=== PATIENT | male | born 1955 | race Caucasian/White ===

== ENCOUNTER 2016-05-09 08:34 | Inpatient (IN) | payer OTHER ==
[~2016-05-09 08:34] MED LIST: ACYCLOVIR400 M1 PO; ADVAIR 5001 DISK W/D IH; ALBUTEROL SULF8.5 GM IH; ALBUTEROL17 GM INH; ANORO ELLIPTA1 EAC1 IH; AUGMENTIN XR 11 EACH PO; BACITRACIN1 G1 EXT; BACITRACIN28.4 G2 TP; CEFDINIR300 M1 PO; CLARITIN10 M2 PO; CLARITIN10 M8 PO; COMBIVENT RESPIM4 G1 INH; DALIRESP500 MC1 PO; DELTASONE10 MG PO; DELTASONE20 MG PO; DIFLUCAN100 M1 PO; DULCOLAX10 MG PR; DULERA 200 MCG/13 G1 INH; FLONASE ALLERG9.9 ML; FUROSEMIDE20 M1 PO; GAVILAX17 G2 PO; GUAIFENESIN ER600 MG PO; IBUPROFEN200 M2 PO; IPRAT-ALBUT 0.5-3 ML IH; IPRATROPIUM BRO15 M1; LASIX20 M1 PO; LASIX40 M1 PO; LEVAQUIN500 M1 PO; LEVAQUIN500 MG PO; LEVAQUIN750 M1 PO; MAGIC MOUTHWASH SSP; MELOXICAM15 M1 PO; MIRALAX17 G2 PO; MOBIC15 M2 PO; MOTRIN IB200 M1 PO; MUCINEX D ER 11 EACH PO; MUCINEX1200 MG PO; NASONEX17 G1; NORCO 5/325 TAB1 TAB PO; NYSTOP60 GM TP; OXYCODONE HCL5 M1 PO; PERCOCET 5-3251 EACH PO; POTASSIUM CHLO20 ME3 PO; PRADAXA150 M1 PO; PREDNISONE10 M1 PO; PROAIR HFA8.5 GM INH; PROAIR RESPICL90 MCG INH; PROTONIX40 M2 PO; REQUIP1 MG PO; REQUIP2 M1 PO; REQUIP4 M1 PO; ROXICODONE5 M2 PO; SENNA-DOCUSATE1 EAC1 PO; SINGULAIR10 M1 PO; SINGULAIR10 MG PO; SOTALOL80 M1 PO; SYMBICORT 160-4.6 GM IH; TORSEMIDE100 M1 PO; ULTRAM50 MG PO; VENTOLIN HFA18 G2 INH; WELCHOL625 MG PO; XANAX0.25 M1 PO; ZITHROMAX250 M1 PO; ZYRTEC1010 PO
[2016-05-09 09:07] LABS: BASO % 0.3 % (0-2); HCT-HEMATOCRIT 46.1 % (36.0-53.5); HGB-HEMOGLOBIN 14.4 gm/dl (13.5-17.0); IMMATURE GRANULOCYTES ABSOLUTE 0.16 tho/cmm (0-0.03); IMMATURE GRANULOCYTES PERCENT 1.3 % (0-0.3); LYMPH % 3.4 % (20-45); LYMPH ABSOLUTE COUNT 0.4 tho/cmm (0.8-4.5); MCH (MEAN CORPUSCULAR HGB) 29.4 pg (28.0-32.0); MCHC MEAN CORPUSCULAR HGB CONC 31.2 % (32.0-36.0); MCV (MEAN CELL VOLUME) 94.1 fl (82.0-96.0); MEAN PLATELET VOLUME 9.9 cmc (9.4-12.4); MONO % 9.4 % (0-12); MONOCYTE ABSOLUTE COUNT 1.1 tho/cmm (0.0-1.2); NEUTROPHIL ABSOLUTE COUNT 10.3 tho/cmm (1.6-8.0); NEUTROPHIL-AUTOMATED 10.3 tho/cmm (1.6-8.0); NEUTROPHILS % 85.6 % (40-80); PLATELET COUNT 205 tho/cmm (150-450); RED CELL DISTRIBUTION WIDTH 14.3 % (12.4-16.4)
[2016-05-09] MEDS ORDERED: XARELTO10 M1 PO (09:19)
[2016-05-09 09:20] LABS: ALB/GLOB RATIO 0.6 (0.8-2.0); ALBUMIN 2.7 g/dl (3.5-5.0); ALKALINE PHOSPHATASE 54 U/L (33-138); ALT/SGPT 39 U/L (12-78); BILIRUBIN,TOTAL 0.4 mg/dl (0.0-1.5); BLOOD UREA NITROGEN 14 mg/dl (6-24); CALCIUM 9.3 mg/dl (8.5-10.5); CARBON DIOXIDE-VENOUS 34 mmol/L (22-32); CHLORIDE 98 mmol/l (96-110); CREATININE 0.58 mg/dl (0.60-1.30); GLUCOSE 109 mg/dL (70-110); SODIUM 137 mmol/L (135-145); eGFR VALUE FOR BLACK >90 mL/Min
[2016-05-09] MEDS ORDERED: MINOCYCLINE HC100 M1 PO (09:20)
[2016-05-09] MEDS ORDERED: BETAPACE80 M2 PO ×2 (09:20)
[2016-05-09 09:21] LABS: ANION GAP 10 mmol/L (0-20); AST/SGOT 48 U/L (10-40); POTASSIUM 4.6 mmol/L (3.7-5.1)
[2016-05-09] MEDS ORDERED: DELTASONE20 MG PO (09:22)
[2016-05-09] MEDS ORDERED: NEURONTIN100 M1 PO (09:24)
[2016-05-09] MEDS ORDERED: COLACE100 M1 PO (09:41)
[2016-05-09] MEDS ORDERED: TORSEMIDE100 M1 PO (09:42)
[2016-05-09] MEDS ORDERED: ANORO ELLIPTA1 EAC1 INH (09:45)
[2016-05-09 13:53] LABS: URINE BILIRUBIN NEGATIVE (NEG); URINE BLOOD NEGATIVE (NEG); URINE GLUCOSE (UA) NEGATIVE (NEG); URINE KETONE NEGATIVE (NEG); URINE LEUKOCYTE ESTERASE NEGATIVE (NEG); URINE NITRITE NEGATIVE (NEG); URINE PH 6.5 (5.0-8.0); URINE PROTEIN NEGATIVE (NEG)
[2016-05-09 13:58] LABS: URINE APPEARANCE CLEAR; URINE COLOR YELLOW
[2016-05-09 14:04] LABS: URINE EPITHELIAL CELLS 0-2 /[HPF] (0-10); URINE RBC RARE /[HPF] (0-5); URINE WBC 0 /[HPF] (0-5)
[2016-05-09 17:15] LABS: ABG CO2 ARTERIAL 38 mmol/L (21-27); ARTERIAL BLD GAS O2 SATURATION 91 % (95-98); ARTERIAL BLOOD GAS PCO2 56 mmHg (32-45); ARTERIAL PO2 59 mmHg (70-100); BICARBONATE 36 mmol/L (21-28); BLOOD GAS BASE EXCESS 9 mM/L (-/+3); PH 7.42 Units (7.35-7.45)
[2016-05-10 05:59] LABS: CHLORIDE 94 mmol/l (96-110); POTASSIUM 4.3 mmol/L (3.7-5.1); SODIUM 136 mmol/L (135-145)
[2016-05-10 06:00] LABS: ARTERIAL BLD GAS O2 SATURATION 94 % (95-98); BICARBONATE 40 mmol/L (21-28); BLOOD GAS BASE EXCESS 10 mM/L (-/+3); PH 7.34 Units (7.35-7.45)
[2016-05-10 06:04] LABS: ANION GAP 9 mmol/L (0-20); BLOOD UREA NITROGEN 19 mg/dl (6-24); CALCIUM 9.3 mg/dl (8.5-10.5); CARBON DIOXIDE-VENOUS 37 mmol/L (22-32); CREATININE 0.61 mg/dl (0.60-1.30); GLUCOSE 129 mg/dL (70-110); eGFR VALUE FOR BLACK >90 mL/Min
[2016-05-10 06:08] LABS: ARTERIAL PO2 76 mmHg (70-100)
[2016-05-10 06:13] LABS: ABG CO2 ARTERIAL 42 mmol/L (21-27); ARTERIAL BLOOD GAS PCO2 76 mmHg (32-45)
[2016-05-10 10:27] LABS: BASO % 0.2 % (0-2); HCT-HEMATOCRIT 48.4 % (36.0-53.5); HGB-HEMOGLOBIN 15.1 gm/dl (13.5-17.0); IMMATURE GRANULOCYTES ABSOLUTE 0.08 tho/cmm (0-0.03); IMMATURE GRANULOCYTES PERCENT 0.6 % (0-0.3); LYMPH % 3.2 % (20-45); LYMPH ABSOLUTE COUNT 0.4 tho/cmm (0.8-4.5); MCH (MEAN CORPUSCULAR HGB) 29.7 pg (28.0-32.0); MCHC MEAN CORPUSCULAR HGB CONC 31.2 % (32.0-36.0); MCV (MEAN CELL VOLUME) 95.1 fl (82.0-96.0); MONO % 4.9 % (0-12); MONOCYTE ABSOLUTE COUNT 0.6 tho/cmm (0.0-1.2); NEUTROPHIL ABSOLUTE COUNT 11.3 tho/cmm (1.6-8.0); NEUTROPHIL-AUTOMATED 11.3 tho/cmm (1.6-8.0); NEUTROPHILS % 91.1 % (40-80); PLATELET COUNT 217 tho/cmm (150-450); RED BLOOD COUNT 5.09 mil/cmm (4.40-5.70); RED CELL DISTRIBUTION WIDTH 14.3 % (12.4-16.4); WHITE BLOOD COUNT 12.4 tho/cmm (4.0-10.0)
[2016-05-11 05:44] LABS: ARTERIAL BLD GAS O2 SATURATION 96 % (95-98); BICARBONATE 40 mmol/L (21-28); BLOOD GAS BASE EXCESS 10 mM/L (-/+3); PH 7.36 Units (7.35-7.45)
[2016-05-11 05:46] LABS: ABG CO2 ARTERIAL 34 mmol/L (21-27); ARTERIAL PO2 91 mmHg (70-100)
[2016-05-11 05:49] LABS: ARTERIAL BLOOD GAS PCO2 72 mmHg (32-45)
[2016-05-11 06:57] LABS: BASO % 0.2 % (0-2); HCT-HEMATOCRIT 48.4 % (36.0-53.5); HGB-HEMOGLOBIN 14.7 gm/dl (13.5-17.0); IMMATURE GRANULOCYTES ABSOLUTE 0.15 tho/cmm (0-0.03); IMMATURE GRANULOCYTES PERCENT 1.2 % (0-0.3); LYMPH % 3.9 % (20-45); LYMPH ABSOLUTE COUNT 0.5 tho/cmm (0.8-4.5); MCH (MEAN CORPUSCULAR HGB) 29.3 pg (28.0-32.0); MCHC MEAN CORPUSCULAR HGB CONC 30.4 % (32.0-36.0); MCV (MEAN CELL VOLUME) 96.4 fl (82.0-96.0); MEAN PLATELET VOLUME 9.9 cmc (9.4-12.4); MONO % 4.9 % (0-12); MONOCYTE ABSOLUTE COUNT 0.6 tho/cmm (0.0-1.2); NEUTROPHIL ABSOLUTE COUNT 11.3 tho/cmm (1.6-8.0); NEUTROPHIL-AUTOMATED 11.3 tho/cmm (1.6-8.0); NEUTROPHILS % 89.8 % (40-80); PLATELET COUNT 210 tho/cmm (150-450); RED BLOOD COUNT 5.02 mil/cmm (4.40-5.70); RED CELL DISTRIBUTION WIDTH 14.1 % (12.4-16.4); WHITE BLOOD COUNT 12.5 tho/cmm (4.0-10.0)
[2016-05-11 06:57] LABS: PROTHROMBIN TIME 11.9 SECONDS (9.0-13.6)
[2016-05-11 07:06] LABS: ANION GAP 6 mmol/L (0-20); BLOOD UREA NITROGEN 21 mg/dl (6-24); CALCIUM 9.5 mg/dl (8.5-10.5); CHLORIDE 98 mmol/l (96-110); CREATININE 0.69 mg/dl (0.60-1.30); GLUCOSE 143 mg/dL (70-110); POTASSIUM 4.5 mmol/L (3.7-5.1); SODIUM 140 mmol/L (135-145); eGFR VALUE FOR BLACK >90 mL/Min
[2016-05-11 07:20] LABS: CARBON DIOXIDE-VENOUS 41 mmol/L (22-32)
[2016-05-12 04:40] LABS: INR 1.1 INR (0.9-1.1); PROTHROMBIN TIME 12.5 SECONDS (9.0-13.6)
[2016-05-12 04:52] LABS: BLOOD UREA NITROGEN 24 mg/dl (6-24); CALCIUM 9.8 mg/dl (8.5-10.5); CHLORIDE 92 mmol/l (96-110); CREATININE 0.74 mg/dl (0.60-1.30); GLUCOSE 142 mg/dL (70-110); MAGNESIUM 2.7 mg/dl (1.3-2.6); POTASSIUM 4.3 mmol/L (3.7-5.1); SODIUM 138 mmol/L (135-145); eGFR VALUE FOR BLACK >90 mL/Min
[2016-05-12 04:57] LABS: ANION GAP -11 mmol/L (0-20)
[2016-05-12 04:58] LABS: CARBON DIOXIDE-VENOUS 61 mmol/L (22-32)
[2016-05-12 17:03] LABS: ARTERIAL BLD GAS O2 SATURATION 98 % (95-98); BLOOD GAS BASE EXCESS 18 mM/L (-/+3); PH 7.41 Units (7.35-7.45)
[2016-05-12 17:06] LABS: ARTERIAL PO2 117 mmHg (70-100); BICARBONATE 47 mmol/L (21-28)
[2016-05-12 17:10] LABS: ARTERIAL BLOOD GAS PCO2 76 mmHg (32-45)
[2016-05-12 17:11] LABS: ABG CO2 ARTERIAL 49 mmol/L (21-27)
[2016-05-12 17:29] LABS: BLOOD UREA NITROGEN 29 mg/dl (6-24); CALCIUM 9.4 mg/dl (8.5-10.5); CHLORIDE 92 mmol/l (96-110)
[2016-05-12 17:42] LABS: POTASSIUM 4.4 mmol/L (3.5-5.3); eGFR VALUE FOR BLACK >90 mL/Min
[2016-05-12 17:43] LABS: SODIUM 140 mmol/L (135-146)
[2016-05-12 17:44] LABS: CREATININE 0.68 mg/dl (0.67-1.17); GLUCOSE 111 mg/dl (65-120)
[2016-05-12 17:45] LABS: CARBON DIOXIDE-VENOUS 48 mmol/L (21-33)
[2016-05-12 17:46] LABS: ANION GAP 4 mmol/L (0-20)
[2016-05-13 04:35] LABS: INR 1.3 INR (0.9-1.1); PROTHROMBIN TIME 15.6 SECONDS (9.0-13.6)
[2016-05-13 04:56] LABS: BLOOD UREA NITROGEN 25 mg/dl (6-24); CALCIUM 9.5 mg/dl (8.5-10.5); CHLORIDE 91 mmol/l (96-110); CREATININE 0.63 mg/dl (0.60-1.30); GLUCOSE 157 mg/dL (70-110); MAGNESIUM 2.7 mg/dl (1.3-2.6); SODIUM 139 mmol/L (135-145); eGFR VALUE FOR BLACK >90 mL/Min
[2016-05-13 07:28] LABS: ANION GAP 1 mmol/L (0-20); CARBON DIOXIDE-VENOUS 51 mmol/L (22-32)
[2016-05-14 05:38] LABS: PROTHROMBIN TIME 11.9 SECONDS (9.0-13.6)
[2016-05-14 05:39] LABS: BLOOD UREA NITROGEN 22 mg/dl (6-24); CALCIUM 9.5 mg/dl (8.5-10.5); CHLORIDE 89 mmol/l (96-110); CREATININE 0.66 mg/dl (0.60-1.30); GLUCOSE 110 mg/dL (70-110); MAGNESIUM 2.6 mg/dl (1.3-2.6); POTASSIUM 4.5 mmol/L (3.7-5.1); SODIUM 138 mmol/L (135-145); eGFR VALUE FOR BLACK >90 mL/Min
[2016-05-14 05:55] LABS: ARTERIAL BLD GAS O2 SATURATION 98 % (95-98); ARTERIAL PO2 108 mmHg (70-100); BICARBONATE 49 mmol/L (21-28); BLOOD GAS BASE EXCESS 18 mM/L (-/+3); PH 7.38 Units (7.35-7.45)
[2016-05-14 05:58] LABS: ARTERIAL BLOOD GAS PCO2 84 mmHg (32-45)
[2016-05-14 05:59] LABS: ABG CO2 ARTERIAL 52 mmol/L (21-27)
[2016-05-14 06:36] LABS: ANION GAP 9 mmol/L (0-20)
[2016-05-14 06:47] LABS: CARBON DIOXIDE-VENOUS 45 mmol/L (22-32)
[2016-05-14 15:29] LABS: BASO % 0.1 % (0-2); HCT-HEMATOCRIT 49.5 % (36.0-53.5); HGB-HEMOGLOBIN 15.3 gm/dl (13.5-17.0); IMMATURE GRANULOCYTES ABSOLUTE 0.25 tho/cmm (0-0.03); IMMATURE GRANULOCYTES PERCENT 1.5 % (0-0.3); LYMPH % 5.4 % (20-45); LYMPH ABSOLUTE COUNT 0.9 tho/cmm (0.8-4.5); MCH (MEAN CORPUSCULAR HGB) 29.8 pg (28.0-32.0); MCHC MEAN CORPUSCULAR HGB CONC 30.9 % (32.0-36.0); MCV (MEAN CELL VOLUME) 96.5 fl (82.0-96.0); MEAN PLATELET VOLUME 9.5 cmc (9.4-12.4); MONO % 6.9 % (0-12); MONOCYTE ABSOLUTE COUNT 1.2 tho/cmm (0.0-1.2); NEUTROPHIL ABSOLUTE COUNT 14.5 tho/cmm (1.6-8.0); NEUTROPHIL-AUTOMATED 14.5 tho/cmm (1.6-8.0); NEUTROPHILS % 86.1 % (40-80); PLATELET COUNT 212 tho/cmm (150-450); RED BLOOD COUNT 5.13 mil/cmm (4.40-5.70); RED CELL DISTRIBUTION WIDTH 13.5 % (12.4-16.4); WHITE BLOOD COUNT 16.9 tho/cmm (4.0-10.0)
[2016-05-15 04:26] LABS: BLOOD UREA NITROGEN 24 mg/dl (6-24); CALCIUM 9.1 mg/dl (8.5-10.5); CHLORIDE 89 mmol/l (96-110); CREATININE 0.67 mg/dl (0.60-1.30); GLUCOSE 142 mg/dL (70-110); SODIUM 136 mmol/L (135-145); eGFR VALUE FOR BLACK >90 mL/Min
[2016-05-15 04:35] LABS: MAGNESIUM 2.6 mg/dl (1.3-2.6)
[2016-05-15 04:40] LABS: ANION GAP 1 mmol/L (0-20); CARBON DIOXIDE-VENOUS 50 mmol/L (21-33)
[2016-05-15 04:51] LABS: ARTERIAL BLD GAS O2 SATURATION 95 % (95-98); BICARBONATE 46 mmol/L (21-28); BLOOD GAS BASE EXCESS 17 mM/L (-/+3); PH 7.43 Units (7.35-7.45)
[2016-05-15 05:15] LABS: ABG CO2 ARTERIAL 48 mmol/L (21-27); ARTERIAL BLOOD GAS PCO2 70 mmHg (32-45); ARTERIAL PO2 73 mmHg (70-100)
[2016-05-16 05:30] LABS: ANION GAP 7 mmol/L (0-20); BLOOD UREA NITROGEN 18 mg/dl (6-24); CALCIUM 9.3 mg/dl (8.5-10.5); CHLORIDE 93 mmol/l (96-110); CREATININE 0.52 mg/dl (0.60-1.30); GLUCOSE 114 mg/dL (70-110); MAGNESIUM 2.6 mg/dl (1.3-2.6); POTASSIUM 4.3 mmol/L (3.7-5.1); SODIUM 137 mmol/L (135-145); eGFR VALUE FOR BLACK >90 mL/Min
[2016-05-16 05:43] LABS: CARBON DIOXIDE-VENOUS 41 mmol/L (22-32)
[2016-05-17 05:16] LABS: ANION GAP 7 mmol/L (0-20); BLOOD UREA NITROGEN 19 mg/dl (6-24); CHLORIDE 94 mmol/l (96-110); GLUCOSE 88 mg/dL (70-110); MAGNESIUM 2.5 mg/dl (1.3-2.6); POTASSIUM 3.7 mmol/L (3.7-5.1); SODIUM 138 mmol/L (135-145); eGFR VALUE FOR BLACK >90 mL/Min
[2016-05-17 05:18] LABS: CARBON DIOXIDE-VENOUS 41 mmol/L (22-32)
[2016-05-18 04:40] LABS: BLOOD UREA NITROGEN 16 mg/dl (6-24); CALCIUM 8.9 mg/dl (8.5-10.5); CHLORIDE 93 mmol/l (96-110); CREATININE 0.59 mg/dl (0.60-1.30); GLUCOSE 106 mg/dL (70-110); SODIUM 140 mmol/L (135-145); eGFR VALUE FOR BLACK >90 mL/Min
[2016-05-18 05:23] LABS: ANION GAP 8 mmol/L (0-20); CARBON DIOXIDE-VENOUS 43 mmol/L (22-32); MAGNESIUM 2.3 mg/dl (1.3-2.6); POTASSIUM 3.8 mmol/L (3.7-5.1)
[2016-05-19 04:02] LABS: ANION GAP 8 mmol/L (0-20); BLOOD UREA NITROGEN 16 mg/dl (6-24); CALCIUM 9.1 mg/dl (8.5-10.5); CHLORIDE 94 mmol/l (96-110); CREATININE 0.55 mg/dl (0.60-1.30); GLUCOSE 99 mg/dL (70-110); MAGNESIUM 2.4 mg/dl (1.3-2.6); POTASSIUM 3.6 mmol/L (3.7-5.1); SODIUM 140 mmol/L (135-145); eGFR VALUE FOR BLACK >90 mL/Min
[2016-05-19 04:03] LABS: CARBON DIOXIDE-VENOUS 42 mmol/L (22-32)
[2016-05-20 03:52] LABS: ANION GAP 6 mmol/L (0-20); BLOOD UREA NITROGEN 16 mg/dl (6-24); CARBON DIOXIDE-VENOUS 37 mmol/L (22-32); CHLORIDE 99 mmol/l (96-110); CREATININE 0.54 mg/dl (0.60-1.30); GLUCOSE 102 mg/dL (70-110); MAGNESIUM 2.6 mg/dl (1.3-2.6); POTASSIUM 3.4 mmol/L (3.7-5.1); SODIUM 139 mmol/L (135-145); eGFR VALUE FOR BLACK >90 mL/Min
[2016-05-20 05:34] LABS: ABG CO2 ARTERIAL 39 mmol/L (21-27); ARTERIAL BLD GAS O2 SATURATION 98 % (95-98); ARTERIAL BLOOD GAS PCO2 66 mmHg (32-45); ARTERIAL PO2 95 mmHg (70-100); BICARBONATE 37 mmol/L (21-28); BLOOD GAS BASE EXCESS 9 mM/L (-/+3); PH 7.37 Units (7.35-7.45)
[2016-05-20] MEDS ORDERED: TORSEMIDE100 M1 PO (14:00)
[2016-05-20] MEDS ORDERED: DELTASONE20 MG PO (14:02)
[2016-10-06] MEDS ORDERED: LEVAQUIN750 M1 PO (10:24)
[2016-10-06] MEDS ORDERED: DIFLUCAN100 M1 PO (10:42)
[2016-10-06] MEDS ORDERED: SEBEX SHAMPOO118 ML TP (10:43)
[2016-10-06] MEDS ORDERED: ANORO ELLIPTA1 EAC1 INH (10:43)
[2016-10-06] MEDS ORDERED: AZELASTINE137 MCG/01 (10:44)
[2016-10-06] MEDS ORDERED: KETOCONAZOLE120 M2 TP (10:45)
[2016-10-06] MEDS ORDERED: KETOTIFEN FUMARA5 M1 OP (10:46)
[2016-11-14] MEDS ORDERED: VANCOMYCIN125 MG/2.1 PO (13:09)
[2016-11-14] MEDS ORDERED: TETRACYCLINE H250 M1 PO (13:09)
[2016-11-14] MEDS ORDERED: CARDIZEM CD240 M1 PO (13:14)
[2016-11-14] MEDS ORDERED: NORCO 5-325 TA1 EACH PO (13:15)
[2016-11-14] MEDS ORDERED: ALDACTONE25 M1 PO (13:20)
[2016-11-14] MEDS ORDERED: MUCINEX600 M1 PO (13:20)
[2016-11-14] MEDS ORDERED: AYR SALINE NASA14 GM (13:21)
[2016-11-14] MEDS ORDERED: MAG-AL PLUS XS30 M1 PO (13:23)
[2016-11-14] MEDS ORDERED: CULTURELLE1 EAC1 PO (13:24)
[2016-11-14] MEDS ORDERED: GAS RELIEF80 M1 PO (13:25)
[2016-11-14] MEDS ORDERED: COUMADIN2.5 M1 PO (13:29)
[2016-11-14] MEDS ORDERED: FLONASE ALLERG9.9 ML (13:46)
== END 2016-05-20 14:40 | disposition home health service (06) | DRG 189 ==
LOC: EDMED 08:34 → EMR2 11:50 → PCUA 16:02
PROVIDERS: Emergency Medicine; Family Medicine; Internal Medicine Critical Care Medicine; Internal Medicine Pulmonary Disease; Nurse Practitioner Acute Care; ADMIT Family Medicine
PROC: 5A09357 Assistance with Respiratory Ventilation, Less than 24 Consecutive Hours, Continuous Positive Airway Pressure (ICD-10-PCS; 2016-05-09)
PROC: 02HV33Z Insertion of Infusion Device into Superior Vena Cava, Percutaneous Approach (ICD-10-PCS; principal; 2016-05-12)
DX: J96.22 Acute and chronic respiratory failure with hypercapnia (principal); J12.1 Respiratory syncytial virus pneumonia; J84.10 Pulmonary fibrosis, unspecified; Z99.81 Dependence on supplemental oxygen; I48.0 Paroxysmal atrial fibrillation; J44.0 Chronic obstructive pulmonary disease with (acute) lower respiratory infection; G25.81 Restless legs syndrome; Z68.43 Body mass index [BMI] 50.0-59.9, adult; J44.1 Chronic obstructive pulmonary disease with (acute) exacerbation; E66.2 Morbid (severe) obesity with alveolar hypoventilation; K92.1 Melena; Z79.01 Long term (current) use of anticoagulants; J96.21 Acute and chronic respiratory failure with hypoxia; K21.9 Gastro-esophageal reflux disease without esophagitis; Z87.891 Personal history of nicotine dependence; E87.70 Fluid overload, unspecified; Z91.19 Patient's noncompliance with other medical treatment and regimen; I51.7 Cardiomegaly
CPT/HCPCS: C1751; J1940; J1956; J2543; J2920; J2930; J7050; J7512